=== PATIENT | female | born 1955 | race Two or more races ===

== ENCOUNTER 2018-08-29 09:38 | Outpatient (CLI) | payer OTHER | END 2018-08-29 09:42 | disposition home or self-care (01) | LOC: RX STUDY 09:38 | DX: K63.89 Other specified diseases of intestine (principal) ==

== ENCOUNTER → 2021-02-10 09:15 | Outpatient (CLI) | payer OTHER ==
[~2021-02-10 09:15] MED LIST: ATACAND4 MG PO; CALTRATE 600+D1 EAC1 PO; CARDURA PO; DOXAZOSIN MESYLA2 MG; FOLIC ACID1 MG PO; FOSAMAX70 MG PO; HYOSCYAMINE0.125 M1 SL; INTEGRA F CAPS1 EACH PO; INTESTINEX680 M1 PO; MULTIPLE VITAM1 EACH PO; OPTIMAL D31250 MCG PO; OXYC1TAB9 PO; TOPROL XL50 M1 PO
== END | disposition home or self-care (01) ==
LOC: LAB 09:15
PROVIDERS: ATTEND Surgery
DX: D12.0 Benign neoplasm of cecum (principal); N73.6 Female pelvic peritoneal adhesions (postinfective)

== ENCOUNTER 2021-02-25 11:15 | Inpatient (IN) | payer OTHER ==
[~2021-02-25] VITALS: Ht 165.1 cm; Wt 114.3 kg
[2021-02-25] MEDS ORDERED: TOPROL XL50 M1 PO (14:23)
[2021-02-25] MEDS ORDERED: CARDURA PO (14:23)
[2021-02-25] MEDS ORDERED: ATACAND4 MG PO (14:23)
[2021-02-25] MEDS ORDERED: OPTIMAL D31250 MCG PO (14:24)
[2021-02-25] MEDS ORDERED: FOSAMAX70 MG PO (14:24)
[2021-02-25] MEDS ORDERED: CALTRATE 600+D1 EAC1 PO (14:25)
[2021-02-25] MEDS ORDERED: FOLIC ACID1 MG PO (14:25)
[2021-02-25] MEDS ORDERED: MULTIPLE VITAM1 EACH PO (14:25)
[2021-03-05] MEDS ORDERED: DOXAZOSIN MESYLA2 MG (08:13)
[2021-03-07] MEDS ORDERED: HYOSCYAMINE0.125 M1 SL (12:09)
[2021-03-07] MEDS ORDERED: INTEGRA F CAPS1 EACH PO (12:09)
[2021-03-07] MEDS ORDERED: OXYC1TAB9 PO (12:10)
[2021-03-07] MEDS ORDERED: INTESTINEX680 M1 PO (12:10)
== END 2021-03-07 13:10 | disposition home or self-care (01) | DRG 331 ==
LOC: O/R 03-04 08:10 → SURH 03-04 08:10
PROVIDERS: ADMIT Surgery; ATTEND Surgery
PROC: 0DNK4ZZ Release Ascending Colon, Percutaneous Endoscopic Approach (ICD-10-PCS; 2021-03-04)
PROC: 07BC4ZX Excision of Pelvis Lymphatic, Percutaneous Endoscopic Approach, Diagnostic (ICD-10-PCS; 2021-03-04)
PROC: 0DTF4ZZ Resection of Right Large Intestine, Percutaneous Endoscopic Approach (ICD-10-PCS; principal; 2021-03-04 16:45)
DX: D12.0 Benign neoplasm of cecum (principal); N73.6 Female pelvic peritoneal adhesions (postinfective); I10 Essential (primary) hypertension; E66.01 Morbid (severe) obesity due to excess calories; G47.33 Obstructive sleep apnea (adult) (pediatric)

== ENCOUNTER 2022-01-11 12:12 | Outpatient (CLI) | payer OTHER | END 2022-01-11 12:18 | disposition home or self-care (01) | LOC: LAB 12:12 | PROVIDERS: ATTEND Internal Medicine Gastroenterology | DX: Z11.52 Encounter for screening for COVID-19 (principal) ==

== ENCOUNTER 2025-06-17 10:38 | Outpatient (CLI) | payer OTHER | END 2025-06-17 10:41 | disposition home or self-care (01) | LOC: SONOGRAMA 10:38 | PROVIDERS: ATTEND Pathology Anatomic Pathology | DX: D34 Benign neoplasm of thyroid gland (principal); E07.89 Other specified disorders of thyroid; E04.1 Nontoxic single thyroid nodule ==